=== PATIENT | male | born 1995 | race Caucasian/White ===

== ENCOUNTER 2025-08-24 22:40 | Emergency (ER) | payer SELFPAY | END 2025-08-24 22:47 | disposition left against medical advice (07) | LOC: MW.ED 22:40 | DX: Z53.21 Procedure and treatment not carried out due to patient leaving prior to being seen by health care provider (principal) ==

== ENCOUNTER 2025-08-25 00:46 | Emergency (ER) | payer MEDICAID ==
[2025-08-25] MEDS: Promethazine 25 MG/ML SDV IM ONE (01:16)
== END 2025-08-25 01:18 ==
LOC: MW.ED 00:46
DX: F10.129 Alcohol abuse with intoxication, unspecified (principal); F17.200 Nicotine dependence, unspecified, uncomplicated; Z91.030 Bee allergy status; Y90.9 Presence of alcohol in blood, level not specified
CPT/HCPCS: 96372; 99284; J2550; 99283